=== PATIENT | female | born 1985 | race Caucasian/White ===

== ENCOUNTER 2016-11-23 10:57 | Emergency (ER) | payer OTHER ==
[2016-11-23] MEDS ORDERED: Ondansetron INJ* 2 MG/ML VIAL IV ONE (11:45)
[2016-11-23] MEDS ORDERED: NS 0.9% 1000 ML* 1,000 ML IV ONE (11:45)
[2016-11-23 12:34] LABS: Hematocrit 43 % (35-47); Hemoglobin 14.4 g/dl (12.0-16.0); Mean Corpuscular HGB Conc 34 g/dl (31-36); Mean Corpuscular Hemoglobin 31 pg (27-31); Mean Corpuscular Volume 92 fL (80-97); Mean Platelet Volume 8 um3 (7.4-10.4); Red Blood Count 4.68 10^6/ul (4.0-5.4); Red Cell Distribution Width 13 % (10.5-15); White Blood Count 10.8 10^3/ul (3.5-10.8)
[2016-11-23 12:56] LABS: Albumin 4.3 g/dL (3.2-5.2); BUN/Creatinine Ratio 12.9 (8-20); Calcium 9.3 mg/dL (8.6-10.3); EGFR Non-African American 78.5 (>60); Globulin 3.5 g/dL (2-4); Potassium 4.3 mmol/L (3.5-5.0); Total Bilirubin 0.3 mg/dL (0.2-1.0); Total Protein 7.8 g/dL (6.4-8.9)
[2016-11-23] MEDS ORDERED: Iohexol 350* (CONTRAST) 500 ML MDV IV ONE (13:04)
--- NOTE | 2016-11-23 13:39 | RAD ---
HISTORY: Headaches, family history of aneurysm COMPARISONS: None TECHNIQUE: Multiple contiguous axial CT scans were obtained of the head without intravenous contrast. FINDINGS: HEMORRHAGE/INFARCT: There is no hemorrhage or acute infarct. MASSES/SHIFT: There is no mass or shift. EXTRA-AXIAL SPACES: There are no extra-axial fluid collections. SULCI AND VENTRICLES: The sulci and ventricles are normal in size and position for the patient's stated age. CEREBRUM: There are no focal parenchymal abnormalities. BRAINSTEM: There are no focal parenchymal abnormalities. CEREBELLUM: There are no focal parenchymal abnormalities. VESSELS: The vessels are grossly normal. PARANASAL SINUSES: The paranasal sinuses are clear. ORBITS: The orbits are unremarkable. BONES AND SOFT TISSUE: No bone or soft tissue abnormalities are noted. OTHER: None IMPRESSION: NO ACUTE INTRACRANIAL PATHOLOGY.
--- NOTE | 2016-11-23 14:02 | RAD ---
HISTORY: Headaches, family history of aneurysm COMPARISONS: Head CT dated November 23, 2016 TECHNIQUE: Multiple contiguous axial CT scans were obtained of the head and neck After the administration of nonionic intravenous contrast timed to the systemic arterial phase of contrast enhancement. Coronal and sagittal multiplanar reformations are submitted for review. Multiple 3-D maximum intensity projection reconstructions are also submitted for review. FINDINGS: Evaluation is limited by patient motion artifact. CTA NECK: AORTIC ARCH: There is a normal three-vessel branching pattern of the aortic arch. There is no ostial or proximal stenosis of the cephalic great vessels. RIGHT VERTEBRAL ARTERY: The right vertebral artery is patent along its course, without stenosis. LEFT VERTEBRAL ARTERY: The left vertebral artery is patent along its course, without stenosis. DOMINANCE: The vertebral arteries are codominant. RIGHT COMMON CAROTID ARTERY: The right common carotid artery is patent. The right carotid bifurcation occurs at C4-C5 RIGHT INTERNAL CAROTID ARTERY: Evaluation is limited by patient swallowing motion artifact; however, within the limitations of the study, there is no appreciable right internal carotid artery stenosis by NASCET criteria. RIGHT EXTERNAL CAROTID ARTERY: The right external carotid artery is unremarkable. LEFT COMMON CAROTID ARTERY: The left common carotid artery is patent. The left carotid bifurcation occurs at C4-C5 LEFT INTERNAL CAROTID ARTERY: Evaluation is limited by patient swallowing motion artifact; however, within the limitations of the study, there is no appreciable left internal carotid artery stenosis by NASCET criteria. LEFT EXTERNAL CAROTID ARTERY: The left external carotid artery is unremarkable. VENOUS CIRCULATION: The venous system is unremarkable. SALIVARY GLANDS: The parotid glands, submandibular glands, sublingual glands are normal. NASAL CAVITY/NASOPHARYNX: The nasal cavity and nasopharynx are normal. ORAL CAVITY/OROPHARYNX: The oral cavity is obscured by streak artifact from dental amalgam. The visualized oral cavity and oropharynx are unremarkable. LARYNGEAL APPARATUS/HYPOPHARYNX: The laryngeal apparatus and hypopharynx are normal. UPPER AIRWAY/UPPER ESOPHAGUS: The visualized upper airway and esophagus are normal. LUNG APICES: The lung apices are clear. THYROID GLAND: The thyroid gland is normal. LYMPH NODES: There is no lymphadenopathy by size criteria. BONES AND SOFT TISSUES: No bone or soft tissue abnormalities are noted. CTA HEAD: INTRACRANIAL CIRCULATION: There is no aneurysm, vascular malformation, occlusion, or stenosis of the visualized intracranial circulation. The anterior communicating artery complex is clear. Bilateral posterior communicating arteries are identified. VENOUS CIRCULATION: The venous system is unremarkable. PERFUSION: There is no obvious parenchymal perfusion deficit. HEMORRHAGE/INFARCT: There is no hemorrhage or acute infarct. MASSES/SHIFT: There is no mass or shift. EXTRA-AXIAL SPACES: There are no extra-axial fluid collections. SULCI AND VENTRICLES: The sulci and ventricles are normal in size and position for the patient's stated age. CEREBRUM: There are no focal parenchymal abnormalities. BRAINSTEM: There are no focal parenchymal abnormalities. CEREBELLUM: There are no focal parenchymal abnormalities. PARANASAL SINUSES: The paranasal sinuses are clear. ORBITS: The orbits are unremarkable. BONES AND SOFT TISSUE: No bone or soft tissue abnormalities are noted. OTHER: There is no abnormal enhancement. IMPRESSION: 1. LIMITED STUDY. 2. WITHIN THE LIMITATIONS OF THE STUDY, THERE IS NO INTERNAL CAROTID ARTERY STENOSIS BY NASCET CRITERIA. 3. NO ANEURYSM, VASCULAR MALFORMATION, OCCLUSION, OR STENOSIS OF THE VISUALIZED INTRACRANIAL CIRCULATION. CPT II Codes: 3100F
[2016-11-23 14:03] VITALS: BP 103/67
[2016-11-23] MEDS ORDERED: Ketorolac INJ* 30 MG/ML 1 ML VIAL IV ONE (14:13)
--- NOTE | 2016-11-23 14:23 | ED ---
Pierre Villalta Anna, scribed for Shameka Bond MD on 11/23/16 at 1143 . Headache - HPI Summary HPI Summary: Patient is a 31 y/o female coming to [facility] presenting with intermittent CASTAÑEDA that began two weeks ago. She describes the severity of the pain as 10/10. She occasionally gets CASTAÑEDA of this severity but not for this duration. She has been dizzy and lightheaded the last few days. She denies changes in her vision. Her mother has a Hx of aneurysms, so the patient was sent here by her PCP, Treasure Schulz. The patient is a smoker. She has a carbon monoxide detector at home that has not gone off. - History Of Current Complaint Chief Complaint: EDHeadache Stated Complaint: HEADACHE Time Seen by Provider: 11/23/16 11:23 Hx Obtained From: Patient, Family/Grocery Stock Clerk - Accompanied by Hx Last Menstrual Period: 11/05/14 Onset/Duration: Started weeks ago, Still Present Currently Pain Is: Current Pain Scale(0-10)= - 10 - Allergies/Home Medications Allergies/Adverse Reactions: Allergies Allergy/AdvReac Type Severity Reaction Status Date / Time No Known Allergies Allergy Verified 11/23/16 10:58 PMH/Surg Hx/FS Hx/Imm Hx Endocrine/Hematology History: Denies: Hx Diabetes, Hx Thyroid Disease Cardiovascular History: Denies: Hx Hypertension Respiratory History: Reports: Hx Asthma Neurological History: Reports: Hx Headaches - Surgical History Surgery Procedure, Year, and Place: c-sect 12/2006, 05/2009. TUBAL LIGATION Infectious Disease History: No Infectious Disease History: Denies: Traveled Outside the [place] in Last 30 Days - Family History Known Family History: Positive: Other - Hx aneurysms in Mother - Social History Occupation: Employed Full-time - office and meat wrapping Lives: With Family - with and children Alcohol Use: Occasionally Substance Use Type: Reports: None Smoking Status (MU): Heavy Every Day Tobacco Smoker Type: Cigarettes Amount Used/How Often: 1 ppd Length of Time of Smoking/Using Tobacco: 15 years Review of Systems Negative: Blurred Vision Neurological: Other - Dizziness, lightheadedness Positive: Headache All Other Systems Reviewed And Are Negative: Yes Physical Exam Triage Information Reviewed: Yes Vital Signs On Initial Exam: Initial Vitals Temp Pulse Resp BP Pulse Ox 96.7 F 89 18 108/78 100 11/23/16 10:58 11/23/16 10:58 11/23/16 10:58 11/23/16 10:58 11/23/16 10:58 Vital Signs Reviewed: Yes Appearance: Positive: Well-Appearing, Pain Distress - Mild discomfort Skin: Positive: Warm, Skin Color Reflects Adequate Perfusion, Dry Eyes: Positive: EOMI, WIN ENT: Positive: Pharynx normal, TMs normal Neck: Positive: Supple, Nontender Respiratory/Lung Sounds: Positive: Clear to Auscultation, Breath Sounds Present. Negative: Rales, Rhonchi, Wheezes Cardiovascular: Positive: RRR. Negative: Murmur, Rub, Other - gallop Abdomen Description: Positive: Nontender, Soft. Negative: Distended, Guarding, Other: - rebound Bowel Sounds: Positive: Present Musculoskeletal: Positive: Strength/ROM Intact. Negative: Edema Left, Edema Right Neurological: Positive: Normal, Sensory/Motor Intact, Alert, Oriented to Person Place, Time, CN Intact II-III Psychiatric: Positive: Affect/Mood Appropriate Diagnostics - Vital Signs Vital Signs Temp Pulse Resp BP Pulse Ox 11/23/16 10:58 96.7 F 89 18 108/78 100 - Laboratory Lab Results: Lab Results 11/23/16 11/23/16 Range/Units 11:20 11:20 WBC 10.8 (3.5-10.8) 10^3/ul RBC 4.68 (4.0-5.4) 10^6/ul Hgb 14.4 (12.0-16.0) g/dl Hct 43 (35-47) % MCV 92 (80-97) fL MCH 31 (27-31) pg MCHC 34 (31-36) g/dl RDW 13 (10.5-15) % Plt Count 396 (150-450) 10^3/ul MPV 8 (7.4-10.4) um3 Neut % (Auto) 57.8 (38-83) % Lymph % (Auto) 34.2 (25-47) % Sherman % (Auto) 6.0 (1-9) % Eos % (Auto) 1.5 (0-6) % Baso % (Auto) 0.5 (0-2) % Absolute Neuts (auto) 6.2 (1.5-7.7) 10^3/ul Absolute Lymphs (auto) 3.7 (1.0-4.8) 10^3/ul Absolute Monos (auto) 0.6 (0-0.8) 10^3/ul Absolute Eos (auto) 0.2 (0-0.6) 10^3/ul Absolute Basos (auto) 0.1 (0-0.2) 10^3/ul Absolute Nucleated RBC 0.01 10^3/ul Nucleated RBC % 0.1 Sodium 134 (133-145) mmol/L Potassium 4.3 (3.5-5.0) mmol/L Chloride 104 (101-111) mmol/L Carbon Dioxide 22 (22-32) mmol/L Anion Gap 8 (2-11) mmol/L BUN 11 (6-24) mg/dL Creatinine 0.85 (0.51-0.95) mg/dL Est GFR ( Amer) 101.0 (>60) Est GFR (Non-Af Amer) 78.5 (>60) BUN/Creatinine Ratio 12.9 (8-20) Glucose 80 (70-100) mg/dL Calcium 9.3 (8.6-10.3) mg/dL Total Bilirubin 0.30 (0.2-1.0) mg/dL AST 11 L (13-39) U/L ALT 8 (7-52) U/L Alkaline Phosphatase 63 (34-104) U/L Total Protein 7.8 (6.4-8.9) g/dL Albumin 4.3 (3.2-5.2) g/dL Globulin 3.5 (2-4) g/dL Albumin/Globulin Ratio 1.2 (1-3) Result Diagrams: 11/23/16 11:20 11/23/16 11:20 Lab Statement: Any lab studies that have been ordered have been reviewed, and results considered in the medical decision making process. - CT Brain CT CT Interpretation: No Acute Changes CT Interpretation Completed By: Radiologist - IMPRESSION: NO ACUTE INTRACRANIAL PATHOLOGY. Head CTA CT Interpretation: No Acute Changes CT Interpretation Completed By: Radiologist - IMPRESSION: 1. LIMITED STUDY. 2. WITHIN THE LIMITATIONS OF THE STUDY, THERE IS NO INTERNAL CAROTID ARTERY STENOSIS BY NASCET CRITERIA. 3. NO ANEURYSM, VASCULAR MALFORMATION, OCCLUSION, OR STENOSIS OF THE VISUALIZED INTRACRANIAL CIRCULATION. Re-Evaluation - Re-Evaluation First Eval Re-Evaluation Time: 14:16 Comment: Discussed results and plan of care with patient. Patient agrees with plan. Headache Course/Dx - Course Assessment/Plan: 31 yo female with what sounds like a history of chronic headaches here with headaches that have been lasting for the last 2 weeks sent by pcp because of family history of sah. headaches in the past have been similar but not as long lasting, ct and cta head negative. pt ok to go home and f/u with meds - Diagnoses Provider Diagnoses: Headache Discharge - Discharge Plan Condition: Stable Disposition: HOME Patient Education Materials: General Headache (ED) Referrals: Georges Zendejas NP [Primary Care Provider] - Additional Instructions: Follow up with primary care physician within 48 hours. Return to the emergency department for changing or worsening symptoms. The documentation as recorded by the Pierre lipscomb Anna accurately reflects the service I personally performed and the decisions made by me, Shameka Bond MD.
== END 2016-11-23 14:32 | disposition home or self-care (01) ==
LOC: ED 10:57
DX: R51 Headache (principal); F17.210 Nicotine dependence, cigarettes, uncomplicated; R42 Dizziness and giddiness
CPT/HCPCS: 36415; 70450; 70496; 70498; 80053; 85025; 96374; 96375; 99283; J1885; J2405; Q9967

== ENCOUNTER 2017-04-10 18:27 | Emergency (ER) | payer OTHER ==
--- NOTE | 2017-04-10 18:36 | UC ---
Cardiac HPI - HPI Summary HPI Summary: 31 YEAR OLD FEMALE PRESENTS WITH COMPLAINS OF TROUBLE SWALLOWING. - History of Current Complaint Stated Complaint: TIGHT THROAT,HEAVY CHEST Time Seen by Provider: 04/10/17 18:32 Hx Last Menstrual Period: 11/05/14 - Allergy/Home Medications Allergies/Adverse Reactions: Allergies Allergy/AdvReac Type Severity Reaction Status Date / Time No Known Allergies Allergy Verified 04/10/17 18:38 Home Medications: Home Medications NK [No Home Medications Reported] 04/10/17 [History Confirmed 04/10/17] PMH/Surg Hx/FS Hx/Imm Hx Previously Healthy: Yes - Surgical History Surgical History: Yes Surgery Procedure, Year, and Place: c-sect 12/2006, 05/2009. TUBAL LIGATION - Family History Known Family History: Positive: Other - Hx aneurysms in Mother - Social History Alcohol Use: Occasionally Substance Use Type: None Smoking Status (MU): Heavy Every Day Tobacco Smoker Type: Cigarettes Amount Used/How Often: 1 ppd Length of Time of Smoking/Using Tobacco: 15 years Household Exposure Type: Cigarettes - Immunization History Most Recent Influenza Vaccination: NOT THIS SEASON Review of Systems Constitutional: Negative Skin: Negative Eyes: Negative ENT: Other - TROUBLE SWALLOWING THROAT PAIN Respiratory: Negative Cardiovascular: Negative Gastrointestinal: Negative Genitourinary: Negative Motor: Negative Neurovascular: Negative Musculoskeletal: Negative Neurological: Negative Psychological: Negative All Other Systems Reviewed And Are Negative: Yes Physical Exam Triage Information Reviewed: Yes Eye Exam: Normal ENT Exam: Normal Dental Exam: Normal Neck exam: Normal Neck: Positive: 1 Respiratory Exam: Normal Cardiovascular Exam: Normal Abdominal Exam: Normal Musculoskeletal Exam: Normal Neurological Exam: Normal Psychological Exam: Normal Skin Exam: Normal - Clinical Impression Provider Diagnoses: TROUBLE SWALLOWING. DYSPHAGIA Discharge - Discharge Plan Condition: Stable Disposition: HOME Patient Education Materials: Esophagitis (ED), Esophageal Spasm (ED) Referrals: Georges Zendejas NP [Primary Care Provider] - Additional Instructions: PLEASE GO TO ER TO HAVE ESOPHAGU EVALUATED FOR STRICTURE/SPASM.
[2017-04-10 18:38] VITALS: BP 122/79
== END 2017-04-10 18:47 | disposition home or self-care (01) ==
LOC: UCCORT 18:27
DX: R13.10 Dysphagia, unspecified (principal); R07.0 Pain in throat; F17.210 Nicotine dependence, cigarettes, uncomplicated
CPT/HCPCS: 99211; G0463

== ENCOUNTER 2017-09-08 14:26 | Emergency (ER) | payer OTHER ==
[2017-09-08 16:15] VITALS: BP 104/75
--- NOTE | 2017-09-08 16:24 | UC ---
Ear Complaint HPI - HPI Summary HPI Summary: having frequency and dysuria for past couple of days. denies any flank pain or fever. also has sinus congestion into chest, nonprod cough, earache bilaterally and dental pain on right upper side of jaw -- needs dental work but hasnt had time to make appt. taking ibuprofen as directed with some relief. - History of Current Complaint Chief Complaint: UCGeneralIllness Stated Complaint: DENTAL AND EAR PAIN Time Seen by Provider: 09/08/17 16:08 Hx Obtained From: Patient Hx Last Menstrual Period: 08/26/17 Onset/Duration: Lasting Weeks Severity Initially: Moderate Severity Currently: Moderate Alleviating Factors: OTC Meds Associated Signs/Symptoms: Positive: URI Symptoms - Allergies/Home Medications Allergies/Adverse Reactions: Allergies Allergy/AdvReac Type Severity Reaction Status Date / Time No Known Allergies Allergy Verified 09/08/17 16:15 Home Medications: Home Medications oxyCODONE/Acetam5/325MG PREPAK [Percocet 5/325 TAB*] 0.5 tab ONCE 09/08/17 [ History Confirmed 09/08/17] PMH/Surg Hx/FS Hx/Imm Hx Previously Healthy: Yes - Surgical History Surgical History: Yes Surgery Procedure, Year, and Place: c-sect 12/2006, 05/2009. TUBAL LIGATION. upper endo with esophageal dilitation - Family History Known Family History: Positive: Other - Hx aneurysms in Mother - Social History Alcohol Use: Occasionally Substance Use Type: None Smoking Status (MU): Heavy Every Day Tobacco Smoker Type: Cigarettes Amount Used/How Often: 1 ppd Length of Time of Smoking/Using Tobacco: 15 years Household Exposure Type: Cigarettes - Immunization History Most Recent Influenza Vaccination: NOT THIS SEASON Review of Systems Constitutional: Fatigue Skin: Negative Eyes: Negative ENT: Dental Pain, Sore Throat, Ear Ache, Nasal Discharge, Sinus Congestion Respiratory: Cough Cardiovascular: Negative Gastrointestinal: Negative Genitourinary: Negative Musculoskeletal: Negative Is Patient Immunocompromised?: No All Other Systems Reviewed And Are Negative: Yes Physical Exam Triage Information Reviewed: Yes Appearance: Ill-Appearing Vital Signs: Initial Vital Signs Temp 98.5 F 09/08/17 16:09 Pulse 91 09/08/17 16:09 Resp 16 09/08/17 16:09 BP 104/75 09/08/17 16:09 Pulse Ox 100 09/08/17 16:09 Vital Signs Reviewed: Yes Eye Exam: Normal ENT: Positive: Pharyngeal erythema, Nasal congestion, TM bulging - bilateral, Other - dental pain - right upper plate Respiratory Exam: Normal Cardiovascular Exam: Normal Psychological Exam: Normal Skin Exam: Normal Ear Complaint Course/Dx - Course Course Of Treatment: urine obtained from pt -. take abx for sinusitis/dental pain as directed with food to reduce gi upset. f/u with dentist in next 10 days. increase fluid intake daily to prevent dehydration. f/u pcp 1 week if symptoms not resolving or getting worse - Differential Dx/Diagnosis Differential Diagnosis/HQI/PQRI: URI Discharge - Discharge Plan Condition: Good Disposition: HOME Prescriptions: Amoxicillin PO (*) [Amoxicillin 400 MG/5 ML SUSP*] 800 mg PO BID 10 Days #200 ml Patient Education Materials: Sinusitis (ED), Toothache (ED) Referrals: Georges Zendejas NP [Primary Care Provider] - 1 Week
== END 2017-09-08 16:49 | disposition home or self-care (01) ==
LOC: UCCORT 14:26
DX: J06.9 Acute upper respiratory infection, unspecified (principal); R30.0 Dysuria; R35.0 Frequency of micturition; F17.210 Nicotine dependence, cigarettes, uncomplicated
CPT/HCPCS: 81003; 87077; 87086; 87186; 99212; G0463

== ENCOUNTER 2018-01-19 12:22 | Emergency (ER) | payer OTHER ==
[2018-01-19 13:18] VITALS: BP 90/60
--- NOTE | 2018-01-19 13:30 | UC ---
UC General HPI - HPI Summary HPI Summary: pt is c/o some blood in her urine this am. felt a little off since yesterday. also vague ache L low abdomen and back. states hx of utis in past that presnted the same but usually starts with a burn followed by the rest. no vaginal d/c - History of Current Complaint Chief Complaint: UCGU Stated Complaint: URINARY Time Seen by Provider: 01/19/18 13:24 Hx Last Menstrual Period: 01/03/18 Pain Intensity: 7 - Allergy/Home Medications Allergies/Adverse Reactions: Allergies Allergy/AdvReac Type Severity Reaction Status Date / Time steroid Allergy See Comment Uncoded 01/19/18 13:10 Home Medications: Home Medications Pantoprazole TAB (NF) [Protonix TAB (NF)] 30 mg PO DAILY 01/19/18 [History Confirmed 01/19/18] PMH/Surg Hx/FS Hx/Imm Hx GI/ History: Gastroesophageal Reflux - Surgical History Surgical History: Yes Surgery Procedure, Year, and Place: c-sect 12/2006, 05/2009. TUBAL LIGATION. upper endo with esophageal dilitation. endoscopy with biopsy. Tonsilectomy - Family History Known Family History: Positive: Other - Hx aneurysms in Mother - Social History Lives: With Family Alcohol Use: Rare Substance Use Type: None Smoking Status (MU): Light Every Day Tobacco Smoker Type: Cigarettes Amount Used/How Often: 1/4 ppd Length of Time of Smoking/Using Tobacco: 15 years Household Exposure Type: Cigarettes - Immunization History Most Recent Influenza Vaccination: NOT THIS SEASON Vaccination Up to Date: Yes Review of Systems Constitutional: Negative Skin: Negative Eyes: Negative ENT: Negative Respiratory: Negative Cardiovascular: Negative Gastrointestinal: Negative Genitourinary: Hematuria Motor: Negative Neurovascular: Negative Musculoskeletal: Other: - ache L lower back/abdomen Neurological: Negative Psychological: Negative Is Patient Immunocompromised?: No All Other Systems Reviewed And Are Negative: Yes Physical Exam Triage Information Reviewed: Yes Appearance: Well-Appearing Vital Signs: Initial Vital Signs Temp 97.6 F 01/19/18 13:12 Pulse 66 01/19/18 13:12 Resp 18 01/19/18 13:12 BP 90/60 01/19/18 13:12 Pulse Ox 99 01/19/18 13:12 Vital Signs Reviewed: Yes Eyes: Positive: Conjunctiva Clear ENT: Positive: Normal ENT inspection Neck: Positive: Supple, Nontender, No Lymphadenopathy Respiratory: Positive: Lungs clear, Normal breath sounds Cardiovascular: Positive: RRR, No Murmur Abdomen Description: Positive: Nontender, No Organomegaly, Soft. Negative: Bruit, CVA Tenderness (R), CVA Tenderness (L), Distended, Guarding Bowel Sounds: Positive: Present Musculoskeletal: Positive: ROM Intact Neurological: Positive: Alert Psychological: Positive: Normal Response To Family, Age Appropriate Behavior Skin Exam: Normal Diagnostics - Laboratory Diagnostic Studies Completed/Ordered: U/A=+BLOOD, LEUKOCYTES, NITIRTES(SEE FULL REPORT). URINE CULTURE PENDING. HCG=NEG Course/Dx - Course Course Of Treatment: NON TOXIC, NO ACUTE ABDOMEN. UA C/W UTI. PT REQUEST LIQUID ANTIBIOTIC. - Differential Dx - Multi-Symptom Provider Diagnoses: UTI Discharge - Sign-Out/Discharge Documenting (check all that apply): Discharge/Admit/Transfer - Discharge Plan Condition: Stable Disposition: HOME Prescriptions: Cephalexin SUSP* [Keflex SUSP 250 MG/5 ML*] 500 mg PO TID 7 Days #210 ml Patient Education Materials: Urinary Tract Infection in Women (DC) Referrals: Georges Zendejas NP [Primary Care Provider] - 5 Days - Billing Disposition and Condition Condition: STABLE Disposition: HOME
== END 2018-01-19 15:00 | disposition home or self-care (01) ==
LOC: UCCORT 12:22
DX: N39.0 Urinary tract infection, site not specified (principal); Z32.02 Encounter for pregnancy test, result negative; Z88.8 Allergy status to other drugs, medicaments and biological substances; K21.9 Gastro-esophageal reflux disease without esophagitis; F17.210 Nicotine dependence, cigarettes, uncomplicated
CPT/HCPCS: 81003; 84702; 87086; 99212; G0463